=== PATIENT | female | born 1990 | race Caucasian/White ===

== ENCOUNTER 2021-03-18 05:58 | Inpatient (IN) ==
[~2021-03-18 05:58] MED LIST: *HR* Nalbuphine 10 MG/ML AMPUL IV PRN; Azithromycin 500 MG in 0.9 % Sodium Chloride 250 ML IVPB ONE; Famotidine 20 MG/2 ML VIAL IVP PRN; Lidocaine 1% 20 ML MDV INFILT PRN; Metoclopramide 10 MG/2 ML VIAL IVP PRN; Naloxone 0.4 MG/ML INJ IVP PRN; Ondansetron 4 MG/2 ML VIAL IVP PRN
[2021-03-18] MEDS ORDERED: miSOPROStoL 25 MCG TABLET PO PRN (06:00)
[2021-03-18] MEDS ORDERED: EPHEDrine 50 MG/ML VIAL IVP PRN (06:17)
[2021-03-18] MEDS ORDERED: Epidural Premix (fent/bupiv) 110 ML EP SCH (06:30)
[2021-03-18 06:47] LABS: Basophils # 0.1 K/mcL (0.0-0.2); Basophils % 0.5 %; Eosinophils # 0.2 K/mcL (0.0-0.6); Eosinophils % 1.2 %; Hemoglobin 13.5 g/dL (11.5-15.4); Immature Granulocytes % 1.2 % (0-4); Lymphocytes # 2.8 K/mcL (0.6-4.6); Lymphocytes % 19.9 %; Mean Corpuscular HGB Conc 33.8 g/dL (31.6-35.5); Mean Corpuscular Hemoglobin 31.5 pg (28.0-33.3); Mean Corpuscular Volume 93.2 fL (83.0-100.0); Mean Platelet Volume 10.1 fL (9.4-12.4); Monocytes # 0.4 K/mcL (0.0-1.3); Neutrophils # 10.4 K/mcL (1.6-8.9); Platelet Count 326 K/mcL (140-400); Red Blood Count 4.29 M/mcL (3.82-4.97); Red Cell Distribution Width 12.9 % (11.5-14.5); Segmented Neutrophils % 74.2 %
[2021-03-18 08:56] LABS: Amphetamine Screen,Urine Negative ng/mL (Cutoff=1000); Barbiturate Screen,Urine Negative ng/mL (Cutoff=200); Benzodiazepines Screen,Urine Negative ng/mL (Cutoff=200); Cannabinoid Screen,Urine Negative ng/mL (Cutoff = 50); Cocaine Screen,Urine Negative ng/mL (Cutoff= 300); Opiate Screen,Urine Negative ng/mL (Cutoff=300); Phencyclidine Screen,Urine Negative ng/mL (Cutoff=25)
[2021-03-18] MEDS ORDERED: Oxytocin 20 units/ LR 1000 mL 20 UNIT/1,000 ML BAG IVC ONE (10:25)
[2021-03-18] MEDS ORDERED: Oxytocin 20 units/ LR 1000 mL 20 UNIT/1,000 ML BAG IVC SCH ×3 (10:30→22:37)
[2021-03-18] MEDS: Ringers Solution, Lactated 1,000 ML IVC SCH ×2 (10:34→13:11)
[2021-03-18] MEDS ORDERED: Ropivacaine/PF 0.2% 20 ML VIAL EP ONE (11:33)
[2021-03-18] MEDS ORDERED: *HR* FentaNYL (PF) 100 MCG/2 ML VIAL EP ONE (11:33)
[2021-03-18] MEDS ORDERED: *HR* FentaNYL (PF) 100 MCG/2 ML VIAL ONE (11:38)
[2021-03-18] MEDS ORDERED: Ropivacaine/PF 0.2% 20 ML VIAL ONE (11:38)
[2021-03-18] MEDS ORDERED: Terbutaline 1 MG/ML VIAL SQ ONE (13:25)
[2021-03-18] MEDS ORDERED: Lidocaine/EPI 1:200k 2% PF 20 ML VIAL ONE (19:18)
[2021-03-18] MEDS ORDERED: Ondansetron 4 MG/2 ML VIAL ONE (19:19)
[2021-03-18] MEDS ORDERED: *HR* Morphine Sulfate/PF 10 MG/10 ML AMPUL ONE (19:19)
[2021-03-18] MEDS ORDERED: Acetaminophen IV 1,000 MG/100 ML BAG IVPB ONE (19:19)
[2021-03-18] MEDS ORDERED: Oxytocin 20 units/ LR 1000 mL 40 UNIT/2,000 ML BAG IVC ONE (19:20)
[2021-03-18] MEDS ORDERED: Ketorolac 30 MG/ML VIAL ONE (19:51)
[2021-03-18] MEDS ORDERED: *HR* OxyCODONE Immed Rel 5 MG TABLET PO PRN (19:58)
[2021-03-18] MEDS ORDERED: Ondansetron 4 MG/2 ML VIAL IVP PRN ×2 (19:58→22:37)
[2021-03-18] MEDS ORDERED: *HR* HYDROmorphone PF 0.5 MG/0.5 ML SYRINGE IVP PRN (19:58)
[2021-03-18] MEDS ORDERED: Azithromycin 500 MG in 0.9 % Sodium Chloride 250 ML IVPB ONE ×2 (20:00→22:37)
[2021-03-18] MEDS ORDERED: Rho Immune Globulin 1,500 UNIT SYRINGE IM ONE (22:37)
[2021-03-18] MEDS ORDERED: Famotidine 20 MG/2 ML VIAL IVP ONE (22:37)
[2021-03-18] MEDS ORDERED: Ringers Solution, Lactated 1,000 ML IVC SCH (22:37)
[2021-03-18] MEDS ORDERED: Metoclopramide 10 MG/2 ML VIAL IVP ONE (22:37)
[2021-03-18] MEDS ORDERED: Metoclopramide 10 MG/2 ML VIAL IVP PRN (22:37)
[2021-03-18] MEDS ORDERED: CeFAZolin 2,000 MG/50 ML BAG IVPB ONE (22:37)
[2021-03-18] MEDS ORDERED: Sennosides 8.6 MG TABLET PO PRN (22:37)
[2021-03-18] MEDS ORDERED: Ringers Solution, Lactated 1,000 ML IVC ONE (22:37)
[2021-03-18] MEDS ORDERED: Simethicone 80 MG TAB.CHEW PO PRN (22:37)
[2021-03-19] MEDS: Acetaminophen 325 MG TABLET PO SCH ×4 (04:55→21:20)
[2021-03-19 05:27] LABS: Basophils % 0.2 %; Hematocrit 34.2 % (35.3-44.9); Immature Granulocytes % 0.7 % (0-4); Lymphocytes # 1.9 K/mcL (0.6-4.6); Lymphocytes % 9.4 %; Mean Corpuscular HGB Conc 33.3 g/dL (31.6-35.5); Mean Corpuscular Hemoglobin 31.4 pg (28.0-33.3); Mean Corpuscular Volume 94.2 fL (83.0-100.0); Mean Platelet Volume 10.2 fL (9.4-12.4); Monocytes # 0.7 K/mcL (0.0-1.3); Monocytes % 3.5 %; Platelet Count 242 K/mcL (140-400); Red Blood Count 3.63 M/mcL (3.82-4.97); Red Cell Distribution Width 12.7 % (11.5-14.5); Segmented Neutrophils % 86.2 %; White Blood Count 19.8 K/mcL (4.3-11.1)
[2021-03-19 05:28] LABS: Hemoglobin 11.4 g/dL (11.5-15.4)
[2021-03-19] MEDS: Ibuprofen 600 MG TABLET PO SCH ×4 (05:29→17:03)
[2021-03-19] MEDS: Prenatal Vit/FA 1 EACH TABLET PO SCH (07:38)
[2021-03-19] MEDS: *HR* OxyCODONE Immed Rel 5 MG TABLET PO PRN (21:23)
[2021-03-20] MEDS: Ibuprofen 600 MG TABLET PO SCH ×2 (00:43→09:05)
[2021-03-20] MEDS: *HR* OxyCODONE Immed Rel 5 MG TABLET PO PRN (04:01)
[2021-03-20] MEDS: Acetaminophen 325 MG TABLET PO SCH (04:01)
[2021-03-20 05:09] LABS: Basophils % 0.3 %; Eosinophils # 0.1 K/mcL (0.0-0.6); Eosinophils % 0.9 %; Hematocrit 33.8 % (35.3-44.9); Lymphocytes # 3.3 K/mcL (0.6-4.6); Lymphocytes % 24.3 %; Mean Corpuscular HGB Conc 32.5 g/dL (31.6-35.5); Mean Corpuscular Hemoglobin 31.3 pg (28.0-33.3); Mean Platelet Volume 10.4 fL (9.4-12.4); Monocytes # 0.6 K/mcL (0.0-1.3); Monocytes % 4.3 %; Neutrophils # 9.3 K/mcL (1.6-8.9); Platelet Count 267 K/mcL (140-400); Red Blood Count 3.52 M/mcL (3.82-4.97); Red Cell Distribution Width 12.9 % (11.5-14.5); Segmented Neutrophils % 69.2 %; White Blood Count 13.4 K/mcL (4.3-11.1)
[2021-03-20 07:45] VITALS: BP 114/73
[2021-03-20] MEDS: Prenatal Vit/FA 1 EACH TABLET PO SCH (09:05)
== END 2021-03-20 11:10 | disposition home or self-care (01) | DRG 540 ==
LOC: 1NENULAB 05:58 → 1NENUOBS 22:36
PROVIDERS: ADMIT Student in an Organized Health Care Education/Training Program; ATTEND Student in an Organized Health Care Education/Training Program